=== PATIENT | female | born 2000 | race Caucasian/White ===

== ENCOUNTER → 2023-12-18 | Outpatient (CLI) | payer MEDICAID ==
[2023-12-18 19:53] LABS: CLUE CELLS PRESENT (Not Observd)
== END ==
LOC: LAB 18:26
PROVIDERS: Nurse Practitioner Family
DX: Z20.2 Contact with and (suspected) exposure to infections with a predominantly sexual mode of transmission (principal)
CPT/HCPCS: Q0111

== ENCOUNTER → 2024-05-22 | Outpatient (CLI) | payer MEDICAID ==
[2024-05-22 16:26] LABS: BASO # 0.05 K/mm3 (0.02-0.10); EOS # 0.29 K/mm3 (0.04-0.40); EOS % 2.3 % (1.0-5.0); HEMATOCRIT 37.6 % (37.0-47.0); HEMOGLOBIN 12.2 g/dL (12.5-16.0); MEAN CELL VOLUME 90 fl (78-100); MEAN CORPUSCULAR HEMOGLOBIN 29 pg (27-31); MEAN CORPUSCULAR HGB CONC 32 g/dL (33-37); MEAN PLATELET VOLUME 9.3 fl (7.4-10.4); MONO # 0.98 K/mm3 (0.20-0.80); NEU # 7.98 K/mm3 (1.40-6.50); PLATELET COUNT 420 K/mm3 (130-400); RED CELL DISTRIBUTION WIDTH 13.4 % (11.5-14.5); WHITE BLOOD COUNT 12.8 K/mm3 (4.8-10.8)
[2024-05-22 16:34] LABS: ALBUMIN 4.1 g/dL (3.5-5.0)
[2024-05-22 16:36] LABS: TOTAL PROTEIN 7.3 g/dL (6.4-8.3)
[2024-05-22 16:38] LABS: TOTAL BILIRUBIN 0.1 mg/dL (0.2-1.2)
== END ==
LOC: LAB 15:56
PROVIDERS: Physician Assistant
DX: R10.9 Unspecified abdominal pain (principal)